=== PATIENT | female | born 1965 | race Caucasian/White ===

== ENCOUNTER 2023-01-14 07:48 | Day surgery (SDC) | payer BC ==
[~2023-01-14 07:48] MED LIST: Lactated Ringers 1,000 ML IV SCH
[2023-01-14] MEDS ORDERED: propofoL 50 ML ONE (08:00)
[2023-01-14] MEDS ORDERED: Dexmedetomidine 200 MCG/2 ML SDV ONE (08:54)
== END 2023-01-14 09:40 | disposition home or self-care (01) ==
LOC: MW.SDS 07:48
PROVIDERS: ATTEND Surgery
DX: Z12.11 Encounter for screening for malignant neoplasm of colon (principal); K63.5 Polyp of colon; M62.830 Muscle spasm of back; G43.909 Migraine, unspecified, not intractable, without status migrainosus; E06.3 Autoimmune thyroiditis; Z98.890 Other specified postprocedural states; Z90.49 Acquired absence of other specified parts of digestive tract; Z79.890 Hormone replacement therapy; Z79.899 Other long term (current) drug therapy
CPT/HCPCS: 45380; J2704; J7120; 00811; J3490

== ENCOUNTER 2023-08-01 13:58 | Emergency (ER) | payer BC ==
[2023-08-01] MEDS: diphenhydrAMINE 50 MG Cap PO ONE (15:15)
== END 2023-08-01 15:18 | disposition home or self-care (01) ==
LOC: MW.ED 13:58
DX: L29.9 Pruritus, unspecified (principal); T39.8X5A Adverse effect of other nonopioid analgesics and antipyretics, not elsewhere classified, initial encounter; Z88.6 Allergy status to analgesic agent; Z79.899 Other long term (current) drug therapy; Z90.710 Acquired absence of both cervix and uterus; Z75.8 Other problems related to medical facilities and other health care
CPT/HCPCS: 99283; A9270; 99282